=== PATIENT | male | born 1990 | race Caucasian/White ===

== ENCOUNTER 2018-02-13 07:58 | Emergency (ER) | payer SELFPAY ==
[~2018-02-13] VITALS: Ht 188 cm; Wt 86.3 kg
[2018-02-13 10:08] VITALS: BP 129/85
== END 2018-02-13 10:18 | disposition home or self-care (01) ==
LOC: EME 07:58
DX: S82.831A Other fracture of upper and lower end of right fibula, initial encounter for closed fracture (principal); S90.511A Abrasion, right ankle, initial encounter; W18.42XA Slipping, tripping and stumbling without falling due to stepping into hole or opening, initial encounter; X50.1XXA Overexertion from prolonged static or awkward postures, initial encounter; Y92.481 Parking lot as the place of occurrence of the external cause; Z23 Encounter for immunization; F17.200 Nicotine dependence, unspecified, uncomplicated
CPT/HCPCS: 73610; 99281; 99284